=== PATIENT | female | born 1985 | race Caucasian/White ===

== ENCOUNTER 2017-12-04 15:18 | Emergency (ER) | payer OTHER, SELFPAY ==
[2017-12-04 15:28] VITALS: BP 112/66; PULSE 100; RESP 18; TEMP 36.6; O2SAT 100; BMI 26.6
[2017-12-04 16:30] VITALS: BP 130/80; PULSE 95; RESP 15; O2SAT 96
[2017-12-04] MEDS: SODIUM CHLORIDE 0.9% 1,000 ML 150 ML IV (16:36)
--- NOTE | 2017-12-04 16:37 | ED_ITS ---
HPI - Dizziness <Adolph Dennis DO - Last Filed: 12/05/17 12:55> General Chief Complaint: Dizziness Stated Complaint: MINI SEIZURES Time Seen by Provider: 12/04/17 15:20 Source: patient Mode of arrival: ambulatory Limitations: no limitations History of Present Illness HPI Narrative: 31-year-old female with history of ovarian cysts and psoriasis presents to the emergency department with a chief complaint of multiple unprovoked episodes of profound dizziness, nausea and a funny feeling in which she cannot accurately describe her symptoms. She states that she has had a few episodes off and on over the past few weeks but has had 3 episodes today. She denies any pattern to when the symptoms developed. She is still relatively cognizant when these episodes happen but she has a very hard time communicating and on some level knows with happening but feels very strange. She denies any new medications, supplements, diet, alcohol or street drugs. She denies any history of seizure activity. She denies any injury nor recent illness with fever or chills. Her symptoms come on quite suddenly and last 30 sec to 1 min MD complaint: dizziness and lightheadedness Onset (ago): day(s) Timing: sudden onset Description: lightheadedness History of similar episodes: Yes History of trauma: No Severity: severe Relieving factors: nothing Exacerbating factors: nothing Associated symptoms: confusion, vision changes and nausea Related Data Home Medications Medication Instructions Recorded Confirmed clobetasol-emollient TOPICAL #0 11/12/16 multivitamin [Multiple Vitamins] 1 tab PO QDAY #0 04/20/17 Vitamin B-6 12/04/17 ferrous sulfate [Iron (ferrous 325 mg PO DAILY 12/04/17 12/04/17 sulfate)] Allergies Allergy/AdvReac Type Severity Reaction Status Date / Time No Known Allergies Allergy Unknown Verified 12/04/17 16:33 Review of Systems <DO Machelle Pandey Last Filed: 12/05/17 12:55> Review of Systems All systems reviewed & are unremarkable except as noted in HPI and below Constitutional Denies chills, Denies fever(s), Denies lethargy and Reports weakness Eyes Reports blurry vision, Reports change in vision, Denies eye discharge, Denies irritation and Reports loss of vision ENT Ears, Nose, Mouth, and Throat: Denies change in voice, Reports dizziness, Denies neck pain and Denies sore throat Cardiovascular Denies chest pain, Denies irregular heart rhythm, Denies lightheadedness, Denies palpitations, Denies dyspnea, Denies dyspnea on exertion and Denies orthopnea Respiratory Denies cough, Denies dyspnea, Denies dyspnea on exertion and Denies wheezing Gastrointestinal Gastrointestinal: Denies abdominal pain, Denies change in bowel habits, Denies diarrhea, Reports nausea and Denies vomiting Genitourinary Denies hematuria, Denies flank pain, Denies urinary incontinence and Denies urinary urgency Musculoskeletal Denies neck pain Integumentary/Breasts Denies pruritus, Denies erythema, Denies rash and Denies wounds Neurologic Reports confusion, Reports dizziness, Reports loss of vision and Reports weakness Psychiatric Denies anxiety, Reports confusion, Denies depression, Denies homicidal ideation and Denies suicidal ideation Endocrine Denies palpitations Hematologic/Lymphatic Denies easy bruising Allergic/Immunologic Denies wheezing Exam <Adolph Dennis, DO - Last Filed: 12/05/17 12:55> Narrative Exam Narrative: Pleasant 31-year-old female in no distress Initial Vital Signs Initial Vital Signs: Vital Signs Temperature 97.8 F 12/04/17 15:28 Pulse Rate 100 H 12/04/17 15:28 Respiratory Rate 18 12/04/17 15:28 Blood Pressure 112/66 12/04/17 15:28 Pulse Oximetry 100 12/04/17 15:28 Const General: cooperative and well developed Nutritional Appearance: well nourished Orientation: alert, awake, oriented x3 and not confused [facility] Head: normocephalic and atraumatic Ears: external ears normal and TM's normal bilaterally Nose: external nose normal and No nasal discharge Face and sinus: sinuses nontender, face symmetric, no sinus tenderness and No dry mucous membranes Mouth: oral mucosae normal and moist mucous membranes Teeth and gingiva: dentition normal Throat: tonsils normal and uvula midline Eyes General: appearance normal, both eyes and all related structures Eyelids: eyelids normal Conjunctivae: conjunctivae normal Sclera: sclerae normal Pupils: PERRL EOM: EOM intact bilaterally Neck Neck: normal visual inspection, trachea midline, No lymphadenopathy, No midline deformity and No JVD Lymphatic: No lymphedema Resp Effort & Inspection: normal respiratory effort, able to speak in complete sentences, no respiratory distress and no use of accessory muscles Auscultation: clear to auscultation bilaterally, no rales, no rhonchi and no wheezes Cardio Rate: regular rate Rhythm: regular rhythm Heart Sounds: no click, no gallops, no murmurs and no rubs Pulses: normal peripheral pulses GI Inspection: non-distended Palpation: soft, no hepatosplenomegaly, No guarding, No pulsatile mass and No tender Auscultation: normal bowel sounds Back/Spine/Pelvis Back: No CVA tenderness Cervical Spine: cervical ROM normal and No pain with cervical ROM Thoracic/Lumbar Spine: thoracic and lumbar spine normal to inspection Skin General: no rashes or lesions noted, No jaundice and No petechiae Neuro General: alert, oriented x3, gait normal and no focal motor deficits Speech: speech normal Extrem General: full ROM, no clubbing, cyanosis or edema, no pedal edema and no calf tenderness Psych Appearance: well kempt Mental Status: mental status grossly normal Attitude: cooperative Thought Content: normal and suicidality Judgment: judgment good <DO Machelle Huynh Last Filed: 12/04/17 20:00> Initial Vital Signs Initial Vital Signs: Vital Signs Temperature 97.8 F 12/04/17 15:28 Pulse Rate 100 H 12/04/17 15:28 Respiratory Rate 18 12/04/17 15:28 Blood Pressure 112/66 12/04/17 15:28 Pulse Oximetry 100 12/04/17 15:28 Scores <Adolph Dennis DO - Last Filed: 12/05/17 12:55> NIH Stroke Scale Level of Conciousness: Alert, keenly responsive Ask month/age: Answers both questions correctly. Open/close eyes, close hand: Performs both tasks correctly Best gaze horizontal: Normal Visual orellana: No visual loss Facial palsy: Normal symetrical movement Left arm drift: No drift for full 10 sec Right arm drift: No drift for full 10 sec Left leg drift: No drift for full 10 sec Right leg drift: No drift for full 10 sec Limb ataxia: Absent Sensory on face/arms/legs: Normal, no sensory loss Best language: No aphasia, normal Dysarthria: Normal Extinction or inattention: No abnormality Total NIH Stroke scale score: 0 Course <DO Machelle Pandey Last Filed: 12/05/17 12:55> Orders Ordered: Discontinued Medications Sodium Chloride (Normal Saline 0.9%) 1,000 mls @ 150 mls/hr IV CONT NIDHI Last Infusion: 12/04/17 19:40 Dose: 0 mls/hr Admin: 12/04/17 16:36 Dose: 150 mls/hr Reevaluation(s) Reevaluation #1: Patient had 1 of her episodes while I was at the bedside. She initially had significant nausea and then visibly came to be quite uncomfortable and anxious. She put her face in her hands and wants [place] for bit. She was able to with much effort talked to me during this episode. EKG ordered Time: 16:37 Vital Signs - 8 hr 12/04/17 15:28 12/04/17 16:30 12/04/17 16:39 Temperature 97.8 F Pulse Rate 100 H 95 H 95 H Respiratory Rate 18 15 16 Blood Pressure 112/66 Blood Pressure [Left Arm] 130/80 H Blood Pressure [Right Arm] 130/80 H Pulse Oximetry 100 96 100 12/04/17 18:01 12/04/17 19:36 Temperature Pulse Rate 91 H 88 Respiratory Rate 20 14 Blood Pressure Blood Pressure [Left Arm] Blood Pressure [Right Arm] 109/62 112/70 Pulse Oximetry 100 100 <Russ Randolph, DO - Last Filed: 12/04/17 20:00> Orders Ordered: Discontinued Medications Sodium Chloride (Normal Saline 0.9%) 1,000 mls @ 150 mls/hr IV CONT NIDHI Last Infusion: 12/04/17 19:40 Dose: 0 mls/hr Admin: 12/04/17 16:36 Dose: 150 mls/hr Vital Signs - 8 hr 12/04/17 15:28 12/04/17 16:30 12/04/17 16:39 Temperature 97.8 F Pulse Rate 100 H 95 H 95 H Respiratory Rate 18 15 16 Blood Pressure 112/66 Blood Pressure [Left Arm] 130/80 H Blood Pressure [Right Arm] 130/80 H Pulse Oximetry 100 96 100 12/04/17 18:01 12/04/17 19:36 Temperature Pulse Rate 91 H 88 Respiratory Rate 20 14 Blood Pressure Blood Pressure [Left Arm] Blood Pressure [Right Arm] 109/62 112/70 Pulse Oximetry 100 100 MDM - Dizziness <Adolph Dennis DO - Last Filed: 12/05/17 12:55> Lab Data Result diagrams: 12/04/17 16:29 12/04/17 16:29 Lab Results 12/04/17 12/04/17 12/04/17 Range/Units 16:29 16:29 16:29 WBC 8.8 (4.5-11.0) X10^3/uL RBC 4.44 (4.0-5.2) X10^6/uL Hgb 13.1 (12.0-16.0) g/dL Hct 38.1 (36-46) % MCV 85.7 (80-100) fL MCH 29.5 (26-34) PG MCHC 34.4 (30-36) % RDW 12.5 (11.6-14.8) % Plt Count 203 (150-400) X10^3/uL Neut % (Auto) 65.2 (50-75) % Lymph % (Auto) 26.5 (25-40) % [place] % (Auto) 6.6 (3-14) % Eos % (Auto) 1.1 L (2-4) % Baso % (Auto) 0.6 (0-2) % Neut # (Auto) 5700 (9562-4469) /uL Sodium 141 (137-145) mmol/L Potassium 3.6 (3.4-5.1) mmol/L Chloride 103 (98-107) mmol/L Carbon Dioxide 28 (22-32) mmol/L BUN 15 (7-17) mg/dL Creatinine 0.70 (0.52-1.04) mg/dL Estimated GFR > 60.0 (>60) mL/min BUN/Creatinine Ratio 21.4 (6-22) Glucose 107 H (70-100) mg/dL Calcium 8.9 (8.4-10.2) mg/dL Troponin I < 0.012 (0.01-0.034) ng/mL TSH 0.90 (0.47-4.68) uIU/mL Thyroxine (T4) 8.60 (5.5-11.0) ug/dL Prolactin 11.2 (3.0-18.6) ng/mL Urine RBC (0-5/HPF) Urine WBC (0-5/HPF) Ur Squamous Epith Cells Urine Bacteria (None) Ur Culture Indicated? Micro UA Comment 12/04/17 Range/Units 16:55 WBC (4.5-11.0) X10^3/uL RBC (4.0-5.2) X10^6/uL Hgb (12.0-16.0) g/dL Hct (36-46) % MCV (80-100) fL MCH (26-34) PG MCHC (30-36) % RDW (11.6-14.8) % Plt Count (150-400) X10^3/uL Neut % (Auto) (50-75) % Lymph % (Auto) (25-40) % [place] % (Auto) (3-14) % Eos % (Auto) (2-4) % Baso % (Auto) (0-2) % Neut # (Auto) (8786-3098) /uL Sodium (137-145) mmol/L Potassium (3.4-5.1) mmol/L Chloride (98-107) mmol/L Carbon Dioxide (22-32) mmol/L BUN (7-17) mg/dL Creatinine (0.52-1.04) mg/dL Estimated GFR (>60) mL/min BUN/Creatinine Ratio (6-22) Glucose (70-100) mg/dL Calcium (8.4-10.2) mg/dL Troponin I (0.01-0.034) ng/mL TSH (0.47-4.68) uIU/mL Thyroxine (T4) (5.5-11.0) ug/dL Prolactin (3.0-18.6) ng/mL Urine RBC 1-5/hpf (0-5/HPF) Urine WBC 0-1/hpf (0-5/HPF) Ur Squamous Epith Cells None seen Urine Bacteria None seen (None) Ur Culture Indicated? Not Reportable Micro UA Comment Not Reportable <Russ Randolph, DO - Last Filed: 12/04/17 20:00> Lab Data Lab Results 12/04/17 12/04/17 12/04/17 Range/Units 16:29 16:29 16:29 WBC 8.8 (4.5-11.0) X10^3/uL RBC 4.44 (4.0-5.2) X10^6/uL Hgb 13.1 (12.0-16.0) g/dL Hct 38.1 (36-46) % MCV 85.7 (80-100) fL MCH 29.5 (26-34) PG MCHC 34.4 (30-36) % RDW 12.5 (11.6-14.8) % Plt Count 203 (150-400) X10^3/uL Neut % (Auto) 65.2 (50-75) % Lymph % (Auto) 26.5 (25-40) % [place] % (Auto) 6.6 (3-14) % Eos % (Auto) 1.1 L (2-4) % Baso % (Auto) 0.6 (0-2) % Neut # (Auto) 5700 (6793-6428) /uL Sodium 141 (137-145) mmol/L Potassium 3.6 (3.4-5.1) mmol/L Chloride 103 (98-107) mmol/L Carbon Dioxide 28 (22-32) mmol/L BUN 15 (7-17) mg/dL Creatinine 0.70 (0.52-1.04) mg/dL Estimated GFR > 60.0 (>60) mL/min BUN/Creatinine Ratio 21.4 (6-22) Glucose 107 H (70-100) mg/dL Calcium 8.9 (8.4-10.2) mg/dL Troponin I < 0.012 (0.01-0.034) ng/mL TSH 0.90 (0.47-4.68) uIU/mL Thyroxine (T4) 8.60 (5.5-11.0) ug/dL Prolactin 11.2 (3.0-18.6) ng/mL Urine RBC (0-5/HPF) Urine WBC (0-5/HPF) Ur Squamous Epith Cells Urine Bacteria (None) Ur Culture Indicated? Micro UA Comment 12/04/17 Range/Units 16:55 WBC (4.5-11.0) X10^3/uL RBC (4.0-5.2) X10^6/uL Hgb (12.0-16.0) g/dL Hct (36-46) % MCV (80-100) fL MCH (26-34) PG MCHC (30-36) % RDW (11.6-14.8) % Plt Count (150-400) X10^3/uL Neut % (Auto) (50-75) % Lymph % (Auto) (25-40) % [place] % (Auto) (3-14) % Eos % (Auto) (2-4) % Baso % (Auto) (0-2) % Neut # (Auto) (7844-1548) /uL Sodium (137-145) mmol/L Potassium (3.4-5.1) mmol/L Chloride (98-107) mmol/L Carbon Dioxide (22-32) mmol/L BUN (7-17) mg/dL Creatinine (0.52-1.04) mg/dL Estimated GFR (>60) mL/min BUN/Creatinine Ratio (6-22) Glucose (70-100) mg/dL Calcium (8.4-10.2) mg/dL Troponin I (0.01-0.034) ng/mL TSH (0.47-4.68) uIU/mL Thyroxine (T4) (5.5-11.0) ug/dL Prolactin (3.0-18.6) ng/mL Urine RBC 1-5/hpf (0-5/HPF) Urine WBC 0-1/hpf (0-5/HPF) Ur Squamous Epith Cells None seen Urine Bacteria None seen (None) Ur Culture Indicated? Not Reportable Micro UA Comment Not Reportable MDM Narrative Medical decision making narrative: Dr. Randolph: 1800 received turned over from day provider who documented initial HPI, review of systems and physical exam. Reviewed patient history and physical exam. Reviewed patient's lab work and radiologic studies. Introduced myself to the patient. Patient has not had any further ?events ?since the initial vent upon initial evaluation by Dr. Dennis. Patient's MRI unremarkable. Did have a discussion with the patient and her at bedside regarding her symptoms. There is a concern that these may be seizure-like activity. We did discuss the importance of following up with her primary doctor and to discuss the indications for an EEG. Patient was given return precautions. She was informed that she should not drive until she is cleared by neurologist. She expressed understanding. She was given return precautions. Both her and her expressed understanding and agreement with plan. Discharge Plan Departure Patient Disposition: Home, Self-Care Clinical Impression: Dizziness Discharge Date/Time: 12/04/17 20:06 Interventions: ED Discharge Assessment Last Done: 12/04/17 20:06 Instructions: Dizziness, Nonvertigo Activity Restrictions/Additional Instructions: Recommend that you contact your primary doctor on Thursday to discuss a follow-up next week and also discussed the indications for an EEG. I also recommend that you do not drive until you are cleared by your primary doctor or a neurologist. Return to the emergency department for any new or worsening symptoms. Prescriptions: No Action clobetasol-emollient 0.05 % cream Topical Qty: 0 RF: 0 multivitamin [Multiple Vitamins] 1 EACH tablet 1 tab PO QDAY Qty: 0 RF: 0 Vitamin B-6 RF: 0 ferrous sulfate [Iron (ferrous sulfate)] 325 mg (65 mg iron) Tablet 325 mg PO DAILY RF: 0
[2017-12-04 16:38] LABS: Add Manual Diff / Slide Review NO; Basophils Percent Auto 0.6 % (0-2); Eosinophils Percent Auto 1.1 % (2-4); Hematocrit 38.1 % (36-46); Hemoglobin 13.1 g/dL (12.0-16.0); Lymphocytes Percent Auto 26.5 % (25-40); Mean Corpuscular HGB Conc 34.4 % (30-36); Mean Corpuscular Hemoglobin 29.5 PG (26-34); Mean Corpuscular Volume 85.7 fL (80-100); Monocytes Percent Auto 6.6 % (3-14); Neutrophils Absolute Auto 5700 /uL (3000-5900); Neutrophils Percent Auto 65.2 % (50-75); Platelet Count 203 X10^3/uL (150-400); Red Blood Cell Count 4.44 X10^6/uL (4.0-5.2); Red Cell Distribution Width 12.5 % (11.6-14.8); White Blood Cell Count 8.8 X10^3/uL (4.5-11.0)
[2017-12-04 16:39] VITALS: BP 130/80; PULSE 95; RESP 16; O2SAT 100
[2017-12-04 16:45] LABS: BUN Creatinine Ratio 21.4 (6-22); Blood Urea Nitrogen 15 mg/dL (7-17); Calcium 8.9 mg/dL (8.4-10.2); Carbon Dioxide 28 mmol/L (22-32); Chloride 103 mmol/L (98-107); Estimated Glomerular Filt Rate > 60.0 mL/min (>60); Glucose 107 mg/dL (70-100); HEMOLYSIS < 15 (0-50); Potassium 3.6 mmol/L (3.4-5.1); Sodium 141 mmol/L (137-145)
--- NOTE | 2017-12-04 16:51 | DI.CT.S_ITS ---
PROCEDURE: CT HEAD/BRAIN WO CON INDICATIONS: mental status changes, vision changes TECHNIQUE: Noncontrast 4.5 mm thick angled axial sections acquired from the foramen magnum to the vertex, with coronal and sagittal reformats. For radiation dose reduction, the following was used: automated exposure control, adjustment of mA and/or kV according to patient size. COMPARISON: None. FINDINGS: Image quality: Diagnostic. CSF spaces: Basal cisterns are patent. No extra-axial fluid collections. Ventricles are normal in size and shape. Brain: No midline shift. No intracranial masses or hemorrhage. Polk-white matter interface is normal. Skull and face: Calvarium and visualized facial bones are intact, without suspicious lesions. Sinuses: Visualized sinuses and mastoids are clear. IMPRESSION: Unremarkable head CT. No acute intracranial hemorrhage. Dictated by: Bairon Eduardo M.D. on 12/04/2017 at 16:10 Approved by: Bairon Eduardo M.D. on 12/04/2017 at 16:12
[2017-12-04 16:58] LABS: Troponin I < 0.012 ng/mL (0.01-0.034)
[2017-12-04 17:02] LABS: Prolactin 11.2 ng/mL (3.0-18.6)
[2017-12-04 17:36] LABS: Bacteria Urine None Seen
--- NOTE | 2017-12-04 17:39 | DI.MRI.S_ITS ---
PROCEDURE: MR HEAD/BRAIN WO CON INDICATIONS: vague neurolgic symtpoms. COnfusion, episodes of facial numb TECHNIQUE: Noncontrast axial T1 spin echo, axial T2 fast spin echo, sagittal and axial FLAIR, coronal T2 fast spin echo, axial gradient echo, axial diffusion and ADC through the brain. COMPARISON: None. FINDINGS: Image quality: Excellent. CSF Spaces: Basal cisterns are patent. No extra-axial fluid collections. Ventricles are normal in size and shape. Brain: No intracranial masses or hemorrhage. No evidence of demyelination is identified. Polk/white matter interface is normal. Brainstem appears normal. Diffusion-weighted images demonstrate no acute ischemic insult. No chronic ischemic insults. Normal intravascular flow voids are present. Skull and face: Calvarium has normal marrow signal. Orbits appear normal. Sinuses: Mild left maxillary and sphenoid sinus disease. IMPRESSION: Negative examination. No evidence of acute ischemia. Dictated by: Ricardo Hilliard M.D. on 12/04/2017 at 19:28 Approved by: Ricardo Hilliard M.D. on 12/04/2017 at 19:34
[2017-12-04 17:54] LABS: RBC Urine 1-5/HPF (0-5/HPF); Squamous Epithelial Cell Urine None Seen; WBC Urine 0-1/HPF (0-5/HPF)
[2017-12-04 18:01] VITALS: BP 109/62; PULSE 91; RESP 20; O2SAT 100
[2017-12-04 19:36] VITALS: BP 112/70; PULSE 88; RESP 14; O2SAT 100
== END 2017-12-04 20:06 | disposition home or self-care (01) ==
PROVIDERS: Emergency Medicine; Emergency Provider Emergency Medicine; Family Provider Family Medicine; PCP Family Medicine
DX: R42 Dizziness and giddiness (principal)
CPT/HCPCS: 36591; 70450; 70551; 80048; 81003; 81015; 81025; 82962; 84146; 84436; 84443; 84484; 85025; 93005; 96360; 96361; 99283; 99285

== ENCOUNTER 2017-12-25 18:45 | Emergency (ER) | payer SELFPAY ==
[2017-12-25 18:50] VITALS: BP 116/75; PULSE 97; RESP 18; TEMP 36.6; O2SAT 100
== END 2017-12-25 19:42 | disposition left against medical advice (07) ==
PROVIDERS: Emergency Provider Emergency Medicine; Family Provider Family Medicine; PCP Family Medicine
DX: R46.2 Strange and inexplicable behavior (principal)
CPT/HCPCS: 99281; 99282

== ENCOUNTER 2018-04-14 07:21 | Emergency (ER) | payer OTHER, SELFPAY ==
--- NOTE | 2018-04-14 07:29 | ED_ITS ---
HPI - Wound/Laceration General Chief Complaint: Wound/Laceration Stated Complaint: deep cut on rt hand Time Seen by Provider: 04/14/18 07:28 Source: patient Mode of arrival: ambulatory Limitations: no limitations History of Present Illness Onset (ago): minute(s) Extremity Location: Right: hand Place: work Patient tetanus UTD: Yes Context: accidental Associated symptoms: none Treatments prior to arrival: bandage and other (Washed wound) Related Data Home Medications Medication Instructions Recorded Confirmed clobetasol-emollient TOPICAL #0 11/12/16 12/15/17 multivitamin [Multiple Vitamins] 1 tab PO QDAY #0 04/20/17 12/15/17 Vitamin B-6 12/04/17 12/15/17 ferrous sulfate [Iron (ferrous 325 mg PO DAILY 12/04/17 12/15/17 sulfate)] Previous Rx's Medication Instructions Recorded diclofenac sodium 75 mg 75 mg PO BID #60 tab 03/12/18 tablet,delayed release Allergies Allergy/AdvReac Type Severity Reaction Status Date / Time No Known Allergies Allergy Unknown Verified 04/14/18 07:50 Review of Systems Review of Systems All systems reviewed & are unremarkable except as noted in HPI and below Constitutional Denies chills, Denies fever(s), Denies lethargy and Denies weakness Eyes Denies change in vision, Denies eye discharge, Denies irritation and Denies loss of vision ENT Ears, Nose, Mouth, and Throat: Denies change in voice, Denies neck pain and Denies sore throat Cardiovascular Denies chest pain, Denies irregular heart rhythm, Denies lightheadedness, Denies palpitations, Denies dyspnea, Denies dyspnea on exertion and Denies orthopnea Respiratory Denies cough, Denies dyspnea, Denies dyspnea on exertion and Denies wheezing Gastrointestinal Gastrointestinal: Denies abdominal pain, Denies change in bowel habits, Denies diarrhea, Denies nausea and Denies vomiting Genitourinary Denies hematuria, Denies flank pain, Denies urinary incontinence and Denies urinary urgency Musculoskeletal Denies neck pain Integumentary/Breasts Denies pruritus, Denies erythema, Denies rash and Reports wounds (Laceration right hand) Neurologic Denies confusion, Denies loss of vision and Denies weakness Psychiatric Denies anxiety, Denies confusion, Denies depression, Denies homicidal ideation and Denies suicidal ideation Endocrine Denies palpitations Hematologic/Lymphatic Denies easy bruising Allergic/Immunologic Denies wheezing [facility] Medical History Eczema, dyshidrotic (Chronic ~2013) Psoriasis (Chronic ~1994) Surgical History History of gynecological procedure (Resolved ~2010) History of third molar tooth extraction Status post breast biopsy (~2003) Status post loop electrosurgical excision procedure (LEEP) of cervix (~2006) Family History Grandmother No problems noted. Family/Other Breast cancer Social History marital status: Smoking Status: Never smoker alcohol intake: current (ON OCCASION ) substance use type: does not use Exam Initial Vital Signs Initial Vital Signs: Vital Signs Temperature 98.1 F 04/14/18 07:35 Pulse Rate 80 04/14/18 07:35 Respiratory Rate 16 04/14/18 07:35 Blood Pressure 109/78 04/14/18 07:35 Pulse Oximetry 99 04/14/18 07:35 Const General: cooperative and well developed Nutritional Appearance: well nourished Orientation: alert, awake, oriented x3 and not confused [facility] Head: normocephalic and atraumatic Ears: external ears normal Nose: external nose normal and No nasal discharge Face and sinus: face symmetric and No dry mucous membranes Mouth: oral mucosae normal and moist mucous membranes Eyes General: appearance normal, both eyes and all related structures Eyelids: eyelids normal Conjunctivae: conjunctivae normal Sclera: sclerae normal Pupils: PERRL EOM: EOM intact bilaterally Neck Neck: normal visual inspection, trachea midline, No lymphadenopathy, No midline deformity and No JVD Lymphatic: No lymphedema Resp Effort & Inspection: normal respiratory effort, able to speak in complete sentences, no respiratory distress and no use of accessory muscles Back/Spine/Pelvis Cervical Spine: cervical ROM normal Skin Trauma: laceration (1.5 cm laceration on the dorsum of the right hand over the mid shaft 5th metacarpal bone. Depth is approximately 4 mm; bleeding is controlled. No other wounds noted. No foreign bodies. Wound appears fresh.) Neuro General: alert, oriented x3, gait normal and no focal motor deficits Speech: speech normal Extrem General: full ROM, no clubbing, cyanosis or edema, no pedal edema and no calf tenderness Psych Appearance: well kempt Mental Status: mental status grossly normal Attitude: cooperative Thought Content: normal and suicidality Judgment: judgment good Procedures Laceration Repair Laceration 1: Site: hand Side (If applicable): right Size (cm): 1.5 Description: linear Depth: simple, single layer Local Anesthetic: lidocaine 1% Amount of anesthesia used (mL): 2 Pre-repair: wound explored, irrigated extensively and deep structures intact Skin layer closed with: nylon Size (cm): 5-0 Number of sutures: 4 Technique: simple, interrupted Number of sutures: 4 Course Course Narrative: Patient had a simple wound which was non contaminated and easily repaired with sutures. We have discussed wound care, including that the patient should avoid rubbing, scrubbing or immersing the wound until the sutures are removed. We have discussed the signs of infection and the usual indications for return. Patient expresses understanding. Vital Signs - 8 hr 04/14/18 07:35 Temperature 98.1 F Pulse Rate 80 Respiratory Rate 16 Blood Pressure 109/78 Pulse Oximetry 99 MDM - Wound/Laceration Medical Records Attestation: I reviewed the patient's medical records. Discharge Plan Departure Patient Disposition: Home Clinical Impression: Laceration Discharge Date/Time: 04/14/18 08:18 Instructions: DI for Laceration Repair Activity Restrictions/Additional Instructions: Please do not immerse, rub, or scrub your wound until the sutures are removed. If you notice any redness spreading away from the wound, swelling around the wound, or the wounds that is open and becomes ?mushy? and drains pus, you should have the wound rechecked right away. Prescriptions: No Action clobetasol-emollient 0.05 % cream Topical Qty: 0 RF: 0 multivitamin [Multiple Vitamins] 1 EACH tablet 1 tab PO QDAY Qty: 0 RF: 0 diclofenac sodium 75 mg tablet,delayed release (DR/EC) 75 mg PO BID Qty: 60 RF: 1 Vitamin B-6 RF: 0 ferrous sulfate [Iron (ferrous sulfate)] 325 mg (65 mg iron) Tablet 325 mg PO DAILY RF: 0 Referrals: Brown Virk MD [Primary Care Provider] - (Please follow up in 7 days for suture removal.)
[2018-04-14 07:35] VITALS: BP 109/78; PULSE 80; RESP 16; TEMP 36.7; O2SAT 99; BMI 27.4
--- NOTE | 2018-04-14 08:19 | PC.NURSE ---
Sutures x3
== END 2018-04-14 08:18 | disposition home or self-care (01) ==
PROVIDERS: Emergency Provider Emergency Medicine; PCP Family Medicine
DX: S61.411A Laceration without foreign body of right hand, initial encounter (principal); W26.8XXA Contact with other sharp object(s), not elsewhere classified, initial encounter
CPT/HCPCS: 12001; 99282; 99283

== ENCOUNTER → 2020-01-06 15:43 | Outpatient (CLI) | payer OTHER, SELFPAY ==
--- NOTE | 2020-01-06 15:44 | DI.RAD.S_ITS ---
PROCEDURE: XR ABDOMEN MIN 2V INDICATIONS: constipation TECHNIQUE: 2 views of the abdomen were acquired. COMPARISON: None. FINDINGS: Surgical changes and devices: None. Bowel: No pneumoperitoneum. The bowel gas pattern is nonobstructive. Fecal material is noted in the region of the distal ascending colon and proximal transverse colon as well as the region of the rectum. Soft tissues: No masses; visualized solid organ contours appear normal in size. No suspicious abdominal calcifications. Bones: No suspicious bony abnormalities. IMPRESSION: Abdomen without acute radiographic abnormalities. Nonobstructive bowel gas pattern. Dictated by: Vincent Asif M.D. on 01/06/2020 at 16:14 Approved by: Vincent Asif M.D. on 01/06/2020 at 16:15
[2020-01-06 16:53] LABS: Add Manual Diff / Slide Review NO; Basophils Absolute Auto 0 /uL (0-100); Basophils Percent Auto 0.3 % (0-2); Eosinophils Absolute Auto 100 /uL (0-450); Eosinophils Percent Auto 1.5 % (2-4); Hematocrit 40.2 % (36-46); Hemoglobin 13.5 g/dL (12.0-16.0); Lymphocytes Absolute Auto 1700 /uL (1100-4500); Lymphocytes Percent Auto 25.7 % (25-40); Mean Corpuscular HGB Conc 33.5 % (30-36); Mean Corpuscular Volume 86.4 fL (80-100); Monocytes Absolute Auto 500 /uL (0-900); Monocytes Percent Auto 7.3 % (3-14); Neutrophils Absolute Auto 4400 /uL (1500-7000); Neutrophils Percent Auto 65.2 % (50-75); Platelet Count 214 X10^3/uL (150-400); Red Blood Cell Count 4.65 X10^6/uL (4.0-5.2); Red Cell Distribution Width 12.7 % (11.6-14.8); White Blood Cell Count 6.8 X10^3/uL (4.5-11.0)
[2020-01-06 17:24] LABS: Alanine Aminotransferase 12 IU/L (<35); Albumin 4.6 g/dL (3.5-5.0); Albumin Globulin Ratio 1.8 (1.0-2.8); Alkaline Phosphatase 60 U/L (38-126); Aspartate Aminotransferase 21 IU/L (14-36); BUN Creatinine Ratio 16.3 (6-22); Bilirubin Total 0.2 mg/dL (0.2-1.3); Blood Urea Nitrogen 13 mg/dL (7-17); Calcium 9.3 mg/dL (8.4-10.2); Carbon Dioxide 26 mmol/L (22-32); Chloride 103 mmol/L (98-107); Estimated Glomerular Filt Rate > 60.0 mL/min (>60); Globulin 2.5 g/dL (1.7-4.1); Glucose 89 mg/dL (70-100); HEMOLYSIS < 15 (0-50); Potassium 4.5 mmol/L (3.4-5.1); Sodium 138 mmol/L (137-145); Total Protein 7.1 g/dL (6.3-8.2)
[2020-01-06 17:52] LABS: TSH w/ Reflex to FT4 1.99 uIU/mL (0.47-4.68)
[2020-01-07 20:07] LABS: Tissue Transglutaminase IgA <2 U/mL (0-3); Tissue Transglutaminase IgG <2 U/mL (0-5)
== END ==
PROVIDERS: PCP Family Medicine; Referring Provider Family Medicine; Visit Provider Family Medicine
DX: K59.00 Constipation, unspecified (principal)
CPT/HCPCS: 36415; 74019; 80053; 83516; 84443; 85025

== ENCOUNTER → 2021-07-14 12:02 | Outpatient (CLI) | payer OTHER, SELFPAY ==
[2021-07-14 12:30] LABS: COVID19 -Nasal RAPID Negative (Negative)
== END ==
PROVIDERS: PCP Family Medicine; Referring Provider Nurse Practitioner; Visit Provider Nurse Practitioner
DX: Z20.822 Contact with and (suspected) exposure to COVID-19 (principal)
CPT/HCPCS: 87635

== ENCOUNTER → 2021-07-30 11:33 | Outpatient (CLI) | payer OTHER, SELFPAY ==
--- NOTE | 2021-07-30 11:34 | DI.RAD.S_ITS ---
PROCEDURE: XR CHEST 2V INDICATIONS: pain with inspiration, recent PE TECHNIQUE: 2 views of the chest were acquired. COMPARISON: [facility], CR, XR CHEST 1 VIEW, 05/11/2021, 9:48. FINDINGS: Surgical changes and devices: None. Lungs and pleura: Lungs are clear. No pleural effusions or pneumothorax. Mediastinum: Mediastinal contours are normal. Heart size is normal. Bones and chest wall: No suspicious bony abnormalities. Soft tissues appear unremarkable. IMPRESSION: No acute cardiopulmonary disease. Dictated by: Mateus Suero M.D. on 07/30/2021 at 16:07 Approved by: Mateus Suero M.D. on 07/30/2021 at 16:07
--- NOTE | 2021-07-30 11:34 | DI.RAD.S_ITS ---
PROCEDURE: XR SHOULDER LT MIN 2V INDICATIONS: left shoulder pain TECHNIQUE: 3 views of the shoulder were acquired. COMPARISON: None. FINDINGS: Bones: No fractures or dislocations. No suspicious bony lesions. Visualized ribs appear intact. Soft tissues: No suspicious soft tissue calcifications. IMPRESSION: Normal left shoulder Dictated by: Coleman Palomino M.D. on 07/30/2021 at 15:38 Approved by: Coleman Palomino M.D. on 07/30/2021 at 15:40
== END ==
PROVIDERS: PCP Family Medicine; Referring Provider Family Medicine; Visit Provider Family Medicine
DX: R07.1 Chest pain on breathing (principal); M25.512 Pain in left shoulder
CPT/HCPCS: 71046; 73030

== ENCOUNTER → 2021-09-11 10:47 | Outpatient (CLI) | payer OTHER, SELFPAY ==
--- NOTE | 2021-09-11 10:48 | DI.US.S_ITS ---
PROCEDURE: US PELVIC COMPLETE INDICATIONS: PAIN TECHNIQUE: Real-time scanning was performed of the pelvic organs, with image documentation. Additional endovaginal scanning was necessary due to incomplete visualization of the adnexal and endometrial structures by transabdominal scanning. COMPARISON: [facility], CT, CT ABDOMEN PELVIS WITH CONTRAST, 05/11/2021, 12:16. [facility], US, PELVIC COMPLETE, 06/28/2016, 3:00. FINDINGS: Uterus: Uterus is anteverted and normal in size at 8.1 x 4.3 x 6.3 cm. The myometrium is homogeneous. The endometrium measures 9 mm combined thickness. Ovaries: The right ovary measures 2.5 x 1.1 x 2.8 cm. The left ovary measures 4.1 x 2.2 x 2.2 cm, with a simple appearing 2.2 cm cyst, which is considered to be within physiologic limits. The ovaries have a normal sonographic appearance. No adnexal masses are seen. Normal appearing arterial waveforms are confirmed to each ovary. Other: No pathologic free abdominal or pelvic fluid. IMPRESSION: A 2.2 cm left ovarian cyst is seen, which is considered to be within physiologic limits. We strive to produce accurate, complete, and clear reports of imaging services. To assist us in improving patient care, this report was composed using standard report templates and voice recognition software. Therefore, it may contain abnormal punctuation, insertions and/or omissions. Occasional wrong-word or sound-alike substitutions may occur. Though we review the report and make efforts to correct it, we do recommend that the report be read carefully in proper context to recognize any text inaccuracies. Dictated by: Andrea Pineda M.D. on 09/11/2021 at 10:53 Approved by: Andrea Pineda M.D. on 09/11/2021 at 10:55
== END ==
PROVIDERS: PCP Family Medicine; Referring Provider Family Medicine; Visit Provider Family Medicine
DX: N92.0 Excessive and frequent menstruation with regular cycle (principal); N83.202 Unspecified ovarian cyst, left side; R10.32 Left lower quadrant pain
CPT/HCPCS: 76830; 76856

== ENCOUNTER → 2021-10-09 10:15 | Outpatient (CLI) | payer OTHER, SELFPAY ==
[2021-10-09 12:04] LABS: Add Manual Diff / Slide Review NO; Basophils Absolute Auto 0 /uL (0-100); Basophils Percent Auto 0.7 % (0-2); Eosinophils Absolute Auto 100 /uL (0-450); Eosinophils Percent Auto 1.8 % (2-4); Lymphocytes Absolute Auto 1400 /uL (1100-4500); Lymphocytes Percent Auto 30.2 % (25-40); Mean Corpuscular HGB Conc 34.2 % (30-36); Mean Corpuscular Hemoglobin 28.7 PG (26-34); Monocytes Absolute Auto 300 /uL (0-900); Monocytes Percent Auto 6.3 % (3-14); Neutrophils Absolute Auto 2900 /uL (1500-7000); Platelet Count 224 X10^3/uL (150-400); Red Blood Cell Count 4.53 X10^6/uL (4.0-5.2); White Blood Cell Count 4.7 X10^3/uL (4.5-11.0)
[2021-10-09 12:11] LABS: HEMOLYSIS < 15 (0-50); Iron 78 ug/dL (37-170)
[2021-10-09 12:15] LABS: Alanine Aminotransferase 12 IU/L (<35); Albumin 4.4 g/dL (3.5-5.0); Albumin Globulin Ratio 1.4 (1.0-2.8); Alkaline Phosphatase 52 U/L (38-126); Aspartate Aminotransferase 21 IU/L (14-36); BUN Creatinine Ratio 13.4 (6-22); Bilirubin Total 0.3 mg/dL (0.2-1.3); Blood Urea Nitrogen 11 mg/dL (7-17); Calcium 8.8 mg/dL (8.4-10.2); Carbon Dioxide 27 mmol/L (22-32); Chloride 104 mmol/L (98-107); Estimated Glomerular Filt Rate > 60 mL/min (>60); Globulin 3.1 g/dL (1.7-4.1); Glucose 97 mg/dL (70-100); HEMOLYSIS < 15 (0-50); Potassium 4.2 mmol/L (3.4-5.1); Sodium 140 mmol/L (137-145); Total Protein 7.5 g/dL (6.3-8.2)
[2021-10-09 12:23] LABS: Percent Iron Saturation 21 % (15-50); Total Iron Binding Capacity 380 ug/dL (265-497); Transferrin 302 mg/dL (206-381)
[2021-10-09 12:26] LABS: Vitamin D 25 Hydroxy (D3) 52.1 ng/mL (30.0-100.0)
[2021-10-09 12:44] LABS: TSH w/ Reflex to FT4 0.66 uIU/mL (0.47-4.68)
[2021-10-09 13:00] LABS: Vitamin B12 915 pg/mL (239-931)
== END ==
PROVIDERS: PCP Family Medicine; Referring Provider Physician Assistant; Visit Provider Physician Assistant
DX: E04.9 Nontoxic goiter, unspecified (principal); R21 Rash and other nonspecific skin eruption; R53.83 Other fatigue; E55.9 Vitamin D deficiency, unspecified; Z79.01 Long term (current) use of anticoagulants; Z79.899 Other long term (current) drug therapy
CPT/HCPCS: 36415; 80053; 82306; 82607; 83540; 83550; 84443; 85025

== ENCOUNTER → 2021-11-08 12:51 | Outpatient (CLI) | payer OTHER, SELFPAY ==
[2021-11-09 18:12] LABS: Anti Thyroglobulin Antibody <1.0 IU/mL (0.0-0.9); Thyroid Peroxidase Antibodies 9 IU/mL (0-34)
== END ==
PROVIDERS: PCP Family Medicine; Referring Provider Physician Assistant; Visit Provider Physician Assistant
DX: E04.1 Nontoxic single thyroid nodule (principal); R53.83 Other fatigue; Z86.711 Personal history of pulmonary embolism
CPT/HCPCS: 36415; 86376; 86800

== ENCOUNTER → 2022-07-02 09:01 | Outpatient (CLI) | payer OTHER, SELFPAY ==
[2022-07-02 10:38] LABS: Add Manual Diff / Slide Review NO; Basophils Absolute Auto 0 /uL (0-100); Basophils Percent Auto 0.7 % (0-2); Eosinophils Absolute Auto 100 /uL (0-450); Eosinophils Percent Auto 1.8 % (2-4); Hematocrit 38.3 % (36-46); Hemoglobin 12.7 g/dL (12.0-16.0); Lymphocytes Absolute Auto 1700 /uL (1100-4500); Mean Corpuscular Hemoglobin 28.7 PG (26-34); Mean Corpuscular Volume 86.8 fL (80-100); Monocytes Absolute Auto 300 /uL (0-900); Monocytes Percent Auto 5.5 % (3-14); Neutrophils Absolute Auto 3600 /uL (1500-7000); Platelet Count 219 X10^3/uL (150-400); Red Blood Cell Count 4.42 X10^6/uL (4.0-5.2); Red Cell Distribution Width 13.1 % (11.6-14.8); White Blood Cell Count 5.7 X10^3/uL (4.5-11.0)
[2022-07-02 11:58] LABS: Alanine Aminotransferase 14 IU/L (<35); Albumin 4.3 g/dL (3.5-5.0); Albumin Globulin Ratio 1.2 (1.0-2.8); Alkaline Phosphatase 51 U/L (38-126); Amylase 77 U/L (30-110); Aspartate Aminotransferase 21 IU/L (14-36); BUN Creatinine Ratio 15.6 (6-22); Bilirubin Total 0.5 mg/dL (0.2-1.3); Blood Urea Nitrogen 12 mg/dL (7-17); Carbon Dioxide 25 mmol/L (22-32); Chloride 103 mmol/L (98-107); Estimated Glomerular Filt Rate > 60 mL/min (>60); Globulin 3.6 g/dL (1.7-4.1); Glucose 80 mg/dL (70-100); HEMOLYSIS < 15 (0-50); Lipase 161 U/L (23-300); Potassium 3.9 mmol/L (3.4-5.1); Sodium 138 mmol/L (137-145); Total Protein 7.9 g/dL (6.3-8.2)
== END ==
PROVIDERS: PCP Family Medicine; Referring Provider Family Medicine; Visit Provider Family Medicine
DX: R10.9 Unspecified abdominal pain (principal)
CPT/HCPCS: 36415; 80053; 82150; 83690; 85025

== ENCOUNTER → 2022-07-16 16:06 | Outpatient (CLI) | payer OTHER, SELFPAY ==
--- NOTE | 2022-07-16 16:09 | DI.US.S_ITS ---
PROCEDURE: US ABDOMEN COMPLETE INDICATIONS: RUQ pain TECHNIQUE: Real-time scanning was performed of the abdominal and retroperitoneal organs, with image documentation. COMPARISON: None. FINDINGS: Liver: Liver is normal in size and homogeneous in echotexture. Subcentimeter hepatic cysts are present in the right and left lobe. Gallbladder: Status post cholecystectomy. Biliary ducts: Intrahepatic bile ducts are non-dilated. Extrahepatic bile duct caliber measures 3 mm. Normal is 6-7 mm or less in diameter, or 10 mm or less post-cholecystectomy. Pancreas: Visualized portions of the pancreas are sonographically normal. Spleen: Spleen is normal in size and homogeneous in echotexture. Kidneys: Kidneys are normal in size and echotexture. Right kidney measures 10.7 cm long; left kidney measures 12.5 cm long. No hydronephrosis or nephrolithiasis. No solid masses. A 7 mm left AML is present. Aorta: Visualized aorta is normal in caliber at less than 3 cm. Iliacs: Proximal common iliac arteries are normal in caliber at less than 2.5 cm. IVC: Intrahepatic inferior vena cava is patent. Miscellaneous: No free abdominal fluid. IMPRESSION: No acute ultrasound abnormality. Dictated by: Coleman Palomino M.D. on 07/17/2022 at 8:39 Approved by: Coleman Palomino M.D. on 07/17/2022 at 8:40
== END ==
PROVIDERS: PCP Family Medicine; Referring Provider Family Medicine; Visit Provider Family Medicine
DX: R10.11 Right upper quadrant pain (principal); Z90.49 Acquired absence of other specified parts of digestive tract
CPT/HCPCS: 76700